=== PATIENT | female | born 1975 | race Caucasian/White ===

== ENCOUNTER → 2020-08-17 | Outpatient (CLI) | payer BC ==
[~2020-08-17] MED LIST: ALBU2.5V8 IH; AMIT25TA PO; ASPI325T8 PO; ATOR20TA58 PO; CALCIUM CARBONATE; CETI10TA74 PO; CYAN100016 SL; DIPH25CA58 PO; FLUT9.9S NS; MONT10TA49 PO; UBRO100T PO; [UNRECOGNIZED DRUG - OTHER]
== END ==
LOC: LAB 13:08
PROVIDERS: ATTEND Internal Medicine Cardiovascular Disease
DX: Z01.812 Encounter for preprocedural laboratory examination (principal); Z20.828 Contact with and (suspected) exposure to other viral communicable diseases
CPT/HCPCS: U0003

== ENCOUNTER 2020-08-20 10:42 | Day surgery (SDC) | payer BC ==
[~2020-08-20 10:42] MED LIST changes: +IV RINGERS,LACTATED 1000ML 1,000 ML IV SCH
[2020-08-20] MEDS ORDERED: BENZOCAINE ONE 20% MUCOSAL SPRAY. MM (11:45)
[2020-08-20] MEDS ORDERED: LIDOCAINE 2% TOPICAL JELLY 30GM TUBE. TP ONE ×2 (11:45)
[2020-08-20] MEDS ORDERED: BENZOCAINE ONE 20% MUCOSAL SPRAY. (11:45)
[2020-08-20] MEDS ORDERED: LIDOCAINE 2% VISCOUS 15 ML SOLUTION. SWSW ONE (11:45)
[2020-08-20] MEDS ORDERED: LIDOCAINE 2% PF 5 ML VIAL. ONE (12:05)
[2020-08-20] MEDS ORDERED: PROPOFOL 10 MG/ML (20ML) VIAL. IV ONE (12:05)
[2020-08-20 13:52] VITALS: BP_DIAS 2
--- NOTE | 2020-08-20 14:36 | CARD ---
MR#: [id number] Date of Study: 08/20/2020 Ordering Physician: JAY NAVARRETE Referring Physician: Romie MUNIZ: Elizabeth Fletcher APPROVED REPORT EXAM: Transesophageal echocardiogram with color flow Doppler. INDICATION Cryptogenis stroke and Patent Foramen Ovale Echo Enhancing Agent Indication: Rule Out Septal Defect Agent/Amount Used: Agitated Saline 20mL RISK FACTORS Hyperlipidemia Mitral Valve MV E Gjnnbpgo82.0cm/sMV DECEL [id number] MV A Mlkxlouv08.3cm/sMV [id number] E/A Ratio1.4MVA (PHT)3.89cm2 Reason For Test : PFO Closure PROCEDURE After obtaining informed consent, patient underwent transesophageal echo in the PACU. Type of Sedation : General Anesthesia Sedation was administered by La Radha. Sedation was achieved with Propofol 400mg intravenously. Transesophageal probe was inserted and advanced into esophagus by Jay Navarrete MD. The CARMINA was performed without complications. Throughout the procedure, the blood pressure, pulse oximetry, cardiac rhythm, and rate were monitored . The patient tolerated the procedure without adverse effects. Recovery from general anesthesia was une ventful and vital signs were stable. LEFT VENTRICLE The left ventricle is normal size. There is normal left ventricular wall thickness. The left ventricu lar systolic function is normal. The Ejection Fraction is 55-60%. There is normal LV segmental wall m otion. No left ventricle thrombus noted on this study. RIGHT VENTRICLE The right ventricle is normal size. There is normal right ventricular wall thickness. The right ventr icular systolic function is normal. ATRIA The left atrium size is normal. The right atrium size is normal. The buby study appears positive. The re is no thrombus noted in the left atrial appendage. AORTIC VALVE The aortic valve is normal in structure and function. Doppler and Color Flow revealed no significant aortic regurgitation. There is no significant aortic valvular stenosis. MITRAL VALVE The mitral valve is normal in structure and function. There is no evidence of mitral valve prolapse. There is no mitral valve stenosis. Doppler and Color-flow revealed trace mitral regurgitation. TRICUSPID VALVE The tricuspid valve is normal in structure and function. Doppler and Color Flow revealed trace tricus pid regurgitation. There is no tricuspid valve stenosis. PULMONIC VALVE The pulmonary valve is normal in structure and function. Doppler and Color Flow revealed trace pulmon ic valvular regurgitation. There is no pulmonic valvular stenosis. GREAT VESSELS The aortic root is normal in size. PERICARDIAL EFFUSION There is no evidence of significant pericardial effusion. Critical Notification Critical Value: No <Conclusion> The left ventricular systolic function is normal. The Ejection Fraction is 55-60%. There is normal LV segmental wall motion. Trace mitral regurgitation. Trace tricuspid regurgitation. There is no evidence of significant pericardial effusion. Patent foramen ovale with bidirectional shunt on color doppler and positive bubble study. 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 Signed by : Jay Navarrete, Electronically Approved : 08/20/2020 14:35:49
[2020-08-24] MEDS ORDERED: TOPI25TA52 PO (11:12)
[2020-08-24] MEDS ORDERED: MULT-245 PO (15:25)
[2020-08-25] MEDS ORDERED: CLOP75TA PO (08:47)
== END 2020-08-20 14:03 | disposition home or self-care (01) ==
LOC: SURG 10:42
PROVIDERS: ATTEND Internal Medicine Cardiovascular Disease
DX: I63.9 Cerebral infarction, unspecified (principal); Q21.1 Atrial septal defect; J45.909 Unspecified asthma, uncomplicated; F41.9 Anxiety disorder, unspecified; Z79.899 Other long term (current) drug therapy; Z98.890 Other specified postprocedural states; Z79.82 Long term (current) use of aspirin; Z88.6 Allergy status to analgesic agent
CPT/HCPCS: 81025; 93306; 93312; 93320; 93325; J2704

== ENCOUNTER → 2020-08-21 | Outpatient (CLI) | payer BC ==
[~2020-08-21] MED LIST changes: +CLOP75TA PO; -IV RINGERS,LACTATED 1000ML 1,000 ML IV SCH; +MULT-245 PO; +TOPI25TA52 PO
== END ==
LOC: LAB 13:04
PROVIDERS: ATTEND Internal Medicine Cardiovascular Disease
DX: Z01.812 Encounter for preprocedural laboratory examination (principal); Z20.828 Contact with and (suspected) exposure to other viral communicable diseases
CPT/HCPCS: U0003

== ENCOUNTER → 2021-02-08 | Outpatient (CLI) | payer BC ==
[2020-08-25 07:00] VITALS: BP 101/59
--- NOTE | 2021-02-08 15:52 | CARD ---
MR#: [id number] Date of Study: 02/08/2021 Ordering Physician: JAY ARREOLA, Referring Physician: JAY ARREOLA, Tech: Elizabeth Fletcher [facility] APPROVED REPORT EXAM: Two-dimensional and M-mode echocardiogram with Doppler and color Doppler. Other Information Quality : AverageHR: 70bpm INDICATION PFO follow-up RISK FACTORS Hyperlipidemia 2D DIMENSIONS Left Atrium(2D)3.0 (1.6-4.0cm)IVSd0.8 (0.7-1.1cm) Aortic Root(2D)2.9 (2.0-3.7cm)LVDd4.4 (3.9-5.9cm) LVOT Diameter2.0 (1.8-2.4cm)PWd0.8 (0.7-1.1cm) LVDs2.6 (2.5-4.0cm)FS (%) 40.2 % SV61.2 ml Aortic Valve AoV Peak Pito.123.6cm/sAoV VTI24.5cm AO Peak GR.6.1mmHgLVOT Peak Pito.104.1cm/s LVOT VTI 20.73cmAO Mean GR.3mmHg YOSVANY (VMAX)2.62cl0RBW (VTI)2.73cm2 Mitral Valve MV E Rngyuzuc78.0cm/sMV DECEL [id number] MV A Detjcxvu55.5cm/sMV [id number] E/A Ratio1.2MVA (PHT)3.35cm2 TDI E/Lateral E'5.1E/Medial E'7.0 Pulmonary Valve PV Peak Haheojhj79.3cm/sPV Peak Grad.3mmHg Tricuspid Valve TR P. [id number]/sRAP ALXHWWNQ7fhXh TR Peak Gr.35jmIfJSPV67ebOm Pulmonary Vein S1 Ceiewpad56.9cm/sD2 Batpfhmc43.3cm/s PVa [id number] LEFT VENTRICLE The left ventricle is normal size. There is normal left ventricular wall thickness. The left ventricu lar systolic function is normal and the ejection fraction is within normal range. The Ejection Fracti on is 50-55%. There is normal LV segmental wall motion. The left ventricular diastolic function and f illing is normal for age. RIGHT VENTRICLE The right ventricle is normal size. There is normal right ventricular wall thickness. The right ventr icular systolic function is normal. ATRIA The left atrium size is normal. The right atrium size is normal. The interatrial septum is intact wit h no evidence for an atrial septal defect or patent foramen ovale as noted on 2-D or Doppler imaging. Bubble study appears normal. AORTIC VALVE The aortic valve is normal in structure and function. Doppler and Color Flow revealed no significant aortic regurgitation. There is no significant aortic valvular stenosis. Calculated aortic valve area is 2.70 cm2 with maximum pressure gradient of 7 mmHg and mean pressure gradient of 4 mmHg. MITRAL VALVE The mitral valve is normal in structure and function. There is no evidence of mitral valve prolapse. There is no mitral valve stenosis. Doppler and Color-flow revealed trace mitral regurgitation. TRICUSPID VALVE The tricuspid valve is normal in structure and function. Doppler and Color Flow revealed trace tricus pid regurgitation with an estimated PAP of 27 mmHg. There is no tricuspid valve stenosis. PULMONIC VALVE The pulmonic valve is not well visualized. Doppler and Color Flow revealed trace pulmonic valvular re gurgitation. GREAT VESSELS The aortic root is normal in size. The IVC is normal in size and collapses >50% with inspiration. PERICARDIAL EFFUSION There is no evidence of significant pericardial effusion. Critical Notification Critical Value: No <Conclusion> The left ventricle is normal size. The left ventricular systolic function is normal and the ejection fraction is within normal range. The Ejection Fraction is 50-55%. The interatrial septum is intact with no evidence for an atrial septal defect or patent foramen ovale as noted on 2-D or Doppler imaging. Bubble study appears normal. Doppler and Color Flow revealed no significant aortic regurgitation. There is no significant aortic valvular stenosis. Doppler and Color-flow revealed trace mitral regurgitation. Doppler and Color Flow revealed trace tricuspid regurgitation with an estimated PAP of 27 mmHg. Signed by : Favian Shannon MD Electronically Approved : 02/08/2021 15:51:51
== END ==
LOC: ECHO 09:03
PROVIDERS: ATTEND Internal Medicine Cardiovascular Disease
DX: Q21.1 Atrial septal defect (principal)
CPT/HCPCS: 93306